=== PATIENT | male | born 1955 | race Caucasian/White ===

== ENCOUNTER 2017-04-24 11:19 | Emergency (ER) | payer OTHER ==
[~2017-04-24] VITALS: Ht 180.3 cm; Wt 88.0 kg
[2017-04-24] MEDS ORDERED: KETOROLAC 30MG/ML VIAL IV ONE (12:15)
[2017-04-24] MEDS: VANCOMYCIN 1 G PREMIX 200 ML IV SCH ×2 (13:00→13:12)
[2017-04-24] MEDS ORDERED: HYDRALAZINE 20MG/ML VIAL IV ONE (13:15)
[2017-04-24] MEDS ORDERED: LABETALOL 5MG/ML SYR 20 MG/4 ML SYRINGE IV ONE (15:00)
[2017-04-24 16:56] VITALS: BP 165/110
== END 2017-04-24 17:00 | disposition home or self-care (01) ==
LOC: ER 13:06
DX: L03.211 Cellulitis of face (principal); I11.9 Hypertensive heart disease without heart failure; E78.00 Pure hypercholesterolemia, unspecified
CPT/HCPCS: 96365; 96366; 96375; 99285; J0360; J1885; J3370; J3490; Z7610

== ENCOUNTER 2018-03-04 14:23 | Emergency (ER) | payer OTHER ==
[~2018-03-04] VITALS: Ht 180.3 cm; Wt 91.0 kg
[2018-03-04] MEDS ORDERED: CEFTRIAXONE SODIUM 250 MG/VIAL IM ONE (16:15)
[2018-03-04] MEDS ORDERED: CLONIDINE 0.1MG TABLET PO ONE (16:15)
[2018-03-04] MEDS ORDERED: LIDOCAINE HCL 1% 20ML VIAL (Pyxis) INJ INFIL ONE (16:15)
[2018-03-04] MEDS ORDERED: AZITHROMYCIN 500 MG TABLET PO ONE (16:15)
[2018-03-04 17:26] LABS: CLARITY URINE CLEAR (CLEAR); COLOR URINE YELLOW (YELLOW); KETONES URINE NEGATIVE (NEGATIVE); LEUKOCYTE ESTERASE URINE NEGATIVE (NEGATIVE); NITRITE URINE NEGATIVE (NEGATIVE); OCCULT BLOOD URINE NEGATIVE (NEGATIVE); PH URINE 5.5 (4.5-8.0); PROTEIN URINE 2+ (NEGATIVE); SPECIFIC GRAVITY URINE 1.021 (1.005-1.030); UROBILINOGEN URINE 0.2 E.U./dL (0.2-1.0)
[2018-03-04 17:30] VITALS: BP 181/105
== END 2018-03-04 18:08 | disposition home or self-care (01) ==
LOC: ER 14:23
DX: A64 Unspecified sexually transmitted disease (principal); I10 Essential (primary) hypertension; I25.10 Atherosclerotic heart disease of native coronary artery without angina pectoris; E78.00 Pure hypercholesterolemia, unspecified; F17.210 Nicotine dependence, cigarettes, uncomplicated; Z95.1 Presence of aortocoronary bypass graft; Z88.1 Allergy status to other antibiotic agents
CPT/HCPCS: 81003; 96372; 99283; J0696; J3490; Z7610

== ENCOUNTER 2019-09-17 12:00 | Emergency (ER) | payer MEDICAID, OTHER ==
[~2019-09-17] VITALS: Ht 180.3 cm; Wt 78.0 kg
[2019-09-17] MEDS ORDERED: KETOROLAC 60MG/2ML VIAL IM STA (15:04)
[2019-09-17 15:33] LABS: CHLORIDE 108 mEq/L (98-107)
[2019-09-17 15:39] LABS: BASOPHILS % 0.3 % (0.0-2.0); EOSINOPHILS % 1.7 % (0.0-5.0); HEMATOCRIT. 45.2 % (42.0-52.0); LYMPHOCYTES % 37.5 % (20.0-50.0); MEAN CORPUSCULAR HEMOGLOBIN 31.2 pg (28.0-32.0); MEAN CORPUSCULAR VOLUME 94.1 fL (80.0-94.0); MEAN PLATELET VOLUME 8.2 fl (7.4-10.4); MONOCYTES % 10.4 % (2.0-8.0); NEUTROPHILS % 50.1 % (40.0-76.0); PLATELET 186 x1000/uL (130-400); RED BLOOD CELL COUNT 4.81 mill/uL (4.7-6.1); RED CELL DISTRIBUTION WIDTH 14.5 % (11.6-14.6)
[2019-09-17 16:27] LABS: CLARITY URINE CLEAR (CLEAR); COLOR URINE YELLOW (YELLOW); KETONES URINE NEGATIVE (NEGATIVE); LEUKOCYTE ESTERASE URINE NEGATIVE (NEGATIVE); NITRITE URINE NEGATIVE (NEGATIVE); OCCULT BLOOD URINE NEGATIVE (NEGATIVE); PROTEIN URINE NEGATIVE (NEGATIVE); SPECIFIC GRAVITY URINE 1.013 (1.005-1.030); UROBILINOGEN URINE 0.2 E.U./dL (0.2-1.0)
[2019-09-17] MEDS ORDERED: NITROGLYCERIN 0.4MG TABLET SL SL ONE (16:45)
[2019-09-17 17:23] VITALS: BP 150/76
== END 2019-09-17 17:24 | disposition home or self-care (01) ==
LOC: ER 12:00
DX: R10.9 Unspecified abdominal pain (principal); R30.0 Dysuria; I11.9 Hypertensive heart disease without heart failure; E78.00 Pure hypercholesterolemia, unspecified; Z95.1 Presence of aortocoronary bypass graft; Z88.1 Allergy status to other antibiotic agents
CPT/HCPCS: 36415; 74176; 80053; 81003; 85025; 96372; 99284; J1885

== ENCOUNTER 2020-10-15 00:29 | Inpatient (IN) | payer MEDICAID, OTHER ==
[~2020-10-15] VITALS: Ht 175.3 cm; Wt 77.6 kg
[2020-10-15] MEDS ORDERED: NITROGLYCERIN 0.4MG TABLET SL SL PRN (00:45)
[2020-10-15] MEDS ORDERED: ASPIRIN 81MG TABLET PO ONE (00:45)
[2020-10-15 01:18] LABS: BASOPHILS % 0.4 % (0.0-2.0); EOSINOPHILS % 1.6 % (0.0-5.0); HEMATOCRIT. 40.7 % (42.0-52.0); HEMOGLOBIN. 13.4 g/dL (14.0-18.0); MEAN CORPUSCULAR HEMOGLOBIN 31.3 pg (28.0-32.0); MEAN CORPUSCULAR VOLUME 95.2 fL (80.0-94.0); MEAN PLATELET VOLUME 8.6 fl (7.4-10.4); MONOCYTES % 8.9 % (2.0-8.0); NEUTROPHILS % 57.1 % (40.0-76.0); PLATELET 225 x1000/uL (130-400); RED BLOOD CELL COUNT 4.28 mill/uL (4.7-6.1); RED CELL DISTRIBUTION WIDTH 15.3 % (11.6-14.6)
[2020-10-15 01:22] LABS: CHLORIDE 109 mEq/L (98-107)
[2020-10-15] MEDS ORDERED: HYDROCODONE/ACETAMINOPHEN 5/325MG TABLET PO ONE (01:30)
[2020-10-15] MEDS ORDERED: ACETAMINOPHEN 325MG TABLET PO PRN (09:30)
[2020-10-15] MEDS ORDERED: ONDANSETRON HCL 4MG/2ML INJ IV PRN (09:30)
[2020-10-15] MEDS: ASPIRIN 81MG TABLET PO SCH (09:44)
[2020-10-15] MEDS: ENOXAPARIN 40MG/0.4ML SYR SUBCUT SCH (09:44)
[2020-10-15] MEDS: CLOPIDOGREL 75MG TABLET PO SCH (09:44)
[2020-10-15] MEDS: MORPHINE SULFATE 2 MG/ML CPJ (NOT FOR IM USE) IV PRN ×2 (09:45→11:13)
[2020-10-15 14:43] LABS: CREATINE KINASE MB FRACTION 3.5 ng/mL (0.5-3.6)
[2020-10-15] MEDS: ATORVASTATIN CALCIUM 20MG TABLET PO SCH (21:08)
[2020-10-16] MEDS: MORPHINE SULFATE 2 MG/ML CPJ (NOT FOR IM USE) IV PRN ×2 (02:00→07:58)
[2020-10-16 04:06] LABS: CHLORIDE 108 mEq/L (98-107)
[2020-10-16 04:08] LABS: BASOPHILS % 0.5 % (0.0-2.0); EOSINOPHILS % 1.5 % (0.0-5.0); HEMATOCRIT. 36.4 % (42.0-52.0); HEMOGLOBIN. 12.2 g/dL (14.0-18.0); LYMPHOCYTES % 46.2 % (20.0-50.0); MEAN CORPUSCULAR HEMOGLOBIN 31.7 pg (28.0-32.0); MEAN CORPUSCULAR VOLUME 94.5 fL (80.0-94.0); MEAN PLATELET VOLUME 8.8 fl (7.4-10.4); MONOCYTES % 9.4 % (2.0-8.0); NEUTROPHILS % 42.4 % (40.0-76.0); PLATELET 205 x1000/uL (130-400); RED BLOOD CELL COUNT 3.85 mill/uL (4.7-6.1); RED CELL DISTRIBUTION WIDTH 14.9 % (11.6-14.6)
[2020-10-16] MEDS: ASPIRIN 81MG TABLET PO SCH (08:40)
[2020-10-16] MEDS: CLOPIDOGREL 75MG TABLET PO SCH (08:40)
[2020-10-16] MEDS: ENOXAPARIN 40MG/0.4ML SYR SUBCUT SCH (08:42)
[2020-10-16 11:00] VITALS: BP 155/97
[2020-10-16] MEDS: HYDROCODONE/ACETAMINOPHEN 5/325MG TABLET PO PRN ×2 (14:29→20:39)
[2020-10-16] MEDS: LOSARTAN POTASSIUM 100 MG TABLET PO SCH (14:29)
[2020-10-16 16:00] VITALS: BP 159/76
[2020-10-16 20:30] VITALS: BP 199/106
[2020-10-16] MEDS: ATORVASTATIN CALCIUM 20MG TABLET PO SCH (20:37)
[2020-10-16] MEDS: CARVEDILOL 12.5MG TABLET PO SCH (20:39)
[2020-10-17] VITALS (7 sets, daily range): BP systolic 130–170; BP diastolic 67–100
[2020-10-17] MEDS: HYDROCODONE/ACETAMINOPHEN 5/325MG TABLET PO PRN (02:24)
[2020-10-17] MEDS ORDERED: MORPHINE SULFATE 2 MG/ML CPJ (NOT FOR IM USE) IV PRN (02:45)
[2020-10-17] MEDS: NITROGLYCERIN 0.4MG TABLET SL SL PRN ×2 (02:56→06:35)
[2020-10-17] MEDS: ENOXAPARIN 40MG/0.4ML SYR SUBCUT SCH (08:06)
[2020-10-17] MEDS: CLOPIDOGREL 75MG TABLET PO SCH (08:06)
[2020-10-17] MEDS: CARVEDILOL 12.5MG TABLET PO SCH (08:07)
[2020-10-17] MEDS: LOSARTAN POTASSIUM 100 MG TABLET PO SCH (08:07)
[2020-10-17] MEDS ORDERED: AMLODIPINE 10MG TABLET PO SCH (09:00)
[2020-10-17] MEDS ORDERED: ASPIRIN 81MG TABLET PO SCH (09:00)
[2020-10-17] MEDS ORDERED: ISOSORBIDE MONONITRATE 30MG TABLET SR 24HR PO SCH (09:00)
[2020-10-17] MEDS ORDERED: TAMSULOSIN HCL 0.4MG SR CAPSULE PO SCH ×2 (13:30→15:00)
[2020-10-17] MEDS ORDERED: HYDROCODONE/ACETAMINOPHEN 5/325MG TABLET PO PRN (14:15)
[2020-10-17 15:13] LABS: CLARITY URINE CLEAR (CLEAR); COLOR URINE YELLOW (YELLOW); KETONES URINE NEGATIVE (NEGATIVE); LEUKOCYTE ESTERASE URINE NEGATIVE (NEGATIVE); NITRITE URINE NEGATIVE (NEGATIVE); OCCULT BLOOD URINE NEGATIVE (NEGATIVE); PH URINE 6.5 (4.5-8.0); PROTEIN URINE NEGATIVE (NEGATIVE); SPECIFIC GRAVITY URINE 1.011 (1.005-1.030); UROBILINOGEN URINE 0.2 E.U./dL (0.2-1.0)
[2020-10-17] MEDS ORDERED: TAMS-11 PO (17:14)
[2020-10-17] MEDS ORDERED: AMLO10TA80 PO (17:14)
[2020-10-17] MEDS ORDERED: CLOP75TA15 PO (17:14)
[2020-10-17] MEDS ORDERED: COR12 PO (17:14)
[2020-10-17] MEDS ORDERED: ISOS30TA91 PO (17:14)
[2020-10-17] MEDS ORDERED: LOSA100T3 PO (17:14)
[2020-10-17] MEDS ORDERED: ATOR20TA PO (17:14)
[2020-10-17] MEDS ORDERED: ASPI-1160 PO (17:14)
== END 2020-10-17 18:06 | disposition home or self-care (01) | DRG 206 ==
LOC: ER 00:29 → 8WST 18:50 → ENRESERV 10-16 09:42
PROVIDERS: ADMIT Internal Medicine; ATTEND Internal Medicine
DX: T82.847A Pain due to cardiac prosthetic devices, implants and grafts, initial encounter (principal); M79.606 Pain in leg, unspecified; E44.1 Mild protein-calorie malnutrition; E78.5 Hyperlipidemia, unspecified; E87.8 Other disorders of electrolyte and fluid balance, not elsewhere classified; I25.118 Atherosclerotic heart disease of native coronary artery with other forms of angina pectoris; E78.00 Pure hypercholesterolemia, unspecified; M19.90 Unspecified osteoarthritis, unspecified site; Z95.1 Presence of aortocoronary bypass graft; Z95.5 Presence of coronary angioplasty implant and graft; Z68.25 Body mass index [BMI] 25.0-25.9, adult; Z88.1 Allergy status to other antibiotic agents; N17.0 Acute kidney failure with tubular necrosis; I10 Essential (primary) hypertension
CPT/HCPCS: 36415; 71045; 74178; 80048; 80053; 80061; 81003; 82550; 82553; 83880; 84443; 84484; 85025; 93005; 93306; 96374; 99291; J1650; J2270

== ENCOUNTER 2020-11-03 17:23 | Inpatient (IN) | payer MEDICAID ==
[~2020-11-03] VITALS: Ht 180.3 cm; Wt 76.7 kg
[~2020-11-03 17:23] MED LIST: AMLO10TA80 PO; ASPI-1160 PO; ATOR20TA PO; CLOP75TA15 PO; COR12 PO; ISOS30TA91 PO; LOSA100T3 PO; TAMS-11 PO
[2020-11-03] MEDS ORDERED: ASPIRIN 81MG TABLET PO ONE ×2 (19:15→22:00)
[2020-11-03] MEDS: NITROGLYCERIN 0.4MG TABLET SL SL PRN ×2 (19:39→19:44)
[2020-11-03 19:53] LABS: BASOPHILS % 0.4 % (0.0-2.0); EOSINOPHILS % 1.4 % (0.0-5.0); HEMATOCRIT. 37.7 % (42.0-52.0); HEMOGLOBIN. 12.8 g/dL (14.0-18.0); LYMPHOCYTES % 25.5 % (20.0-50.0); MEAN CORPUSCULAR HEMOGLOBIN 32.3 pg (28.0-32.0); MEAN PLATELET VOLUME 8.7 fl (7.4-10.4); MONOCYTES % 9.9 % (2.0-8.0); NEUTROPHILS % 62.8 % (40.0-76.0); PLATELET 193 x1000/uL (130-400); RED BLOOD CELL COUNT 3.97 mill/uL (4.7-6.1); RED CELL DISTRIBUTION WIDTH 15.8 % (11.6-14.6)
[2020-11-03] MEDS ORDERED: HYDROCODONE/ACETAMINOPHEN 5/325MG TABLET PO PRN (22:00)
[2020-11-04] VITALS (7 sets, daily range): BP systolic 133–170; BP diastolic 68–98
[2020-11-04] MEDS ORDERED: MORPHINE SULFATE 2 MG/ML CPJ (NOT FOR IM USE) IV PRN (03:15)
[2020-11-04] MEDS: HYDROCODONE/ACETAMINOPHEN 10/325MG TABLET PO PRN ×2 (04:14→16:49)
[2020-11-04 07:24] LABS: CHLORIDE 109 mEq/L (98-107)
[2020-11-04 07:29] LABS: BASOPHILS % 0.5 % (0.0-2.0); EOSINOPHILS % 1.8 % (0.0-5.0); HEMATOCRIT. 35.8 % (42.0-52.0); LYMPHOCYTES % 39.4 % (20.0-50.0); MEAN CORPUSCULAR HEMOGLOBIN 32.2 pg (28.0-32.0); MEAN CORPUSCULAR VOLUME 96.4 fL (80.0-94.0); MEAN PLATELET VOLUME 8.2 fl (7.4-10.4); MONOCYTES % 9.1 % (2.0-8.0); NEUTROPHILS % 49.2 % (40.0-76.0); PLATELET 177 x1000/uL (130-400); RED BLOOD CELL COUNT 3.72 mill/uL (4.7-6.1); RED CELL DISTRIBUTION WIDTH 15.8 % (11.6-14.6)
[2020-11-04] MEDS: ASPIRIN 81MG TABLET PO SCH (08:32)
[2020-11-04] MEDS: LOSARTAN POTASSIUM 100 MG TABLET PO SCH (08:32)
[2020-11-04] MEDS: AMLODIPINE 10MG TABLET PO SCH (08:33)
[2020-11-04] MEDS ORDERED: METOPROLOL TARTRATE 50MG TABLET PO SCH (09:00)
[2020-11-04] MEDS: NITROGLYCERIN 0.4MG TABLET SL SL PRN (11:09)
[2020-11-04] MEDS: CLOPIDOGREL 75MG TABLET PO SCH (13:46)
[2020-11-04 17:49] LABS: *BARBITURATES SCREEN URINE NEGATIVE (NEGATIVE); *BENZODIAZEPINES SCREEN URINE NEGATIVE (NEGATIVE); *COCAINE SCREEN URINE NEGATIVE (NEGATIVE); METHADONE URINE SCREEN NEGATIVE (NEGATIVE)
[2020-11-04 17:50] LABS: *AMPHETAMINES SCREEN URINE NEGATIVE (NEGATIVE); CANNABINOID URINE SCREEN PRESUMTIVE POSITIVE (NEGATIVE); OPIATES URINE SCREEN PRESUMTIVE POSITIVE (NEGATIVE); PHENCYCLIDINE URINE SCREEN NEGATIVE (NEGATIVE)
[2020-11-05] VITALS: BP 138/80
[2020-11-05] MEDS: NITROGLYCERIN 0.4MG TABLET SL SL PRN (02:08)
[2020-11-05] MEDS: HYDROCODONE/ACETAMINOPHEN 10/325MG TABLET PO PRN ×3 (02:13→23:27)
[2020-11-05 04:00] VITALS: BP 140/77
[2020-11-05 08:00] VITALS: BP 153/68
[2020-11-05] MEDS: TAMSULOSIN HCL 0.4MG SR CAPSULE PO SCH (09:31)
[2020-11-05] MEDS: ASPIRIN 81MG TABLET PO SCH (09:31)
[2020-11-05] MEDS: AMLODIPINE 10MG TABLET PO SCH (09:31)
[2020-11-05] MEDS: CLOPIDOGREL 75MG TABLET PO SCH (09:31)
[2020-11-05] MEDS: LOSARTAN POTASSIUM 100 MG TABLET PO SCH (09:31)
[2020-11-05 12:00] VITALS: BP_SYST 136; BP_SYST 155; BP_DIAS 63; BP_DIAS 82
[2020-11-05 16:00] VITALS: BP 148/80
[2020-11-05 20:00] VITALS: BP 148/89
[2020-11-05] MEDS: METOPROLOL TARTRATE 50MG TABLET PO SCH (20:48)
[2020-11-05] MEDS: AMLODIPINE 2.5MG TABLET PO SCH (20:48)
[2020-11-06] VITALS: BP 129/80
[2020-11-06 04:00] VITALS: BP 135/79
[2020-11-06] MEDS: CLOPIDOGREL 75MG TABLET PO SCH (07:51)
[2020-11-06] MEDS: ASPIRIN 81MG TABLET PO SCH (07:51)
[2020-11-06] MEDS: LOSARTAN POTASSIUM 100 MG TABLET PO SCH (07:52)
[2020-11-06] MEDS: TAMSULOSIN HCL 0.4MG SR CAPSULE PO SCH (07:52)
[2020-11-06] MEDS: HYDROCODONE/ACETAMINOPHEN 10/325MG TABLET PO PRN ×2 (07:53→12:25)
[2020-11-06] MEDS: METOPROLOL TARTRATE 50MG TABLET PO SCH (07:53)
[2020-11-06] MEDS: AMLODIPINE 2.5MG TABLET PO SCH (07:54)
[2020-11-06 08:00] VITALS: BP 123/81
[2020-11-06 12:31] VITALS: BP 134/83
== END 2020-11-06 13:00 | disposition home or self-care (01) | DRG 198 ==
LOC: ER 17:23 → MICUSO 21:50 → 8WST 23:24
PROVIDERS: ADMIT Internal Medicine; ATTEND Internal Medicine
DX: R07.89 Other chest pain (principal); I25.118 Atherosclerotic heart disease of native coronary artery with other forms of angina pectoris; N17.0 Acute kidney failure with tubular necrosis; E87.8 Other disorders of electrolyte and fluid balance, not elsewhere classified; D64.9 Anemia, unspecified; E78.5 Hyperlipidemia, unspecified; I10 Essential (primary) hypertension; N40.0 Benign prostatic hyperplasia without lower urinary tract symptoms; E78.00 Pure hypercholesterolemia, unspecified; Z76.5 Malingerer [conscious simulation]; Z95.1 Presence of aortocoronary bypass graft; Z95.5 Presence of coronary angioplasty implant and graft; Z88.1 Allergy status to other antibiotic agents; Z79.899 Other long term (current) drug therapy; Z79.82 Long term (current) use of aspirin
CPT/HCPCS: 36415; 71045; 80048; 80305; 84484; 85025; 93005; 99285; J2270

== ENCOUNTER 2022-07-20 09:48 | Emergency (ER) | payer MEDICARE, MEDICAID ==
[~2022-07-20] VITALS: Ht 180.3 cm; Wt 80.0 kg
[2022-07-20 10:15] VITALS: BP 159/105
[2022-07-20 13:13] LABS: CLARITY URINE CLEAR (CLEAR); COLOR URINE YELLOW (YELLOW); KETONES URINE NEGATIVE (NEGATIVE); LEUKOCYTE ESTERASE URINE NEGATIVE (NEGATIVE); NITRITE URINE NEGATIVE (NEGATIVE); OCCULT BLOOD URINE NEGATIVE (NEGATIVE); PH URINE 5.5 (4.5-8.0); PROTEIN URINE 2+ (NEGATIVE); SPECIFIC GRAVITY URINE 1.024 (1.005-1.030)
[2022-07-20] MEDS ORDERED: COR12 PO ×3 (14:05→14:48)
[2022-07-20] MEDS ORDERED: LOSA100T3 PO ×3 (14:05→14:48)
[2022-07-20] MEDS ORDERED: TAMS-11 PO ×3 (14:05→14:48)
[2022-07-20] MEDS ORDERED: AMLO10TA80 PO ×3 (14:05→14:48)
[2022-07-20] MEDS ORDERED: ASPI-1160 PO ×3 (14:05→14:48)
== END 2022-07-20 19:50 | disposition home or self-care (01) ==
LOC: ER 09:48
DX: I10 Essential (primary) hypertension (principal); N40.0 Benign prostatic hyperplasia without lower urinary tract symptoms; I25.2 Old myocardial infarction; M19.90 Unspecified osteoarthritis, unspecified site; Z88.1 Allergy status to other antibiotic agents; Z95.1 Presence of aortocoronary bypass graft; Z86.73 Personal history of transient ischemic attack (TIA), and cerebral infarction without residual deficits; Z79.82 Long term (current) use of aspirin
CPT/HCPCS: 81003; 99283

== ENCOUNTER 2022-10-08 09:19 | Emergency (ER) | payer MEDICARE, MEDICAID ==
[~2022-10-08] VITALS: Ht 180.3 cm; Wt 81.9 kg
[2022-10-08 09:30] VITALS: BP 142/95
[2022-10-08 11:27] LABS: CLARITY URINE CLEAR (CLEAR); COLOR URINE YELLOW (YELLOW); KETONES URINE TRACE (NEGATIVE); LEUKOCYTE ESTERASE URINE NEGATIVE (NEGATIVE); NITRITE URINE NEGATIVE (NEGATIVE); OCCULT BLOOD URINE NEGATIVE (NEGATIVE); PH URINE 5.5 (4.5-8.0); PROTEIN URINE 2+ (NEGATIVE); SPECIFIC GRAVITY URINE 1.026 (1.005-1.030)
[2022-10-08 11:49] LABS: BASOPHILS % 0.4 % (0.0-2.0); EOSINOPHILS % 1.4 % (0.0-5.0); HEMATOCRIT. 48.7 % (42.0-52.0); HEMOGLOBIN. 16.3 g/dL (14.0-18.0); LYMPHOCYTES % 32.6 % (20.0-50.0); MEAN CORPUSCULAR HEMOGLOBIN 31.7 pg (28.0-32.0); MEAN CORPUSCULAR VOLUME 94.4 fL (80.0-94.0); MEAN PLATELET VOLUME 8.7 fl (7.4-10.4); MONOCYTES % 7.3 % (2.0-8.0); NEUTROPHILS % 58.3 % (40.0-76.0); PLATELET 208 x1000/uL (130-400); RED BLOOD CELL COUNT 5.16 mill/uL (4.7-6.1); RED CELL DISTRIBUTION WIDTH 14.8 % (11.6-14.6)
[2022-10-08 12:00] LABS: CHLORIDE 106 mEq/L (98-107)
[2022-10-08] MEDS ORDERED: CEPH500T MT (12:18)
[2022-10-08] MEDS ORDERED: TAMS-11 MT (12:18)
== END 2022-10-08 12:30 | disposition home or self-care (01) ==
LOC: ER 09:19
DX: N39.0 Urinary tract infection, site not specified (principal); N40.0 Benign prostatic hyperplasia without lower urinary tract symptoms; I25.2 Old myocardial infarction; I10 Essential (primary) hypertension; Z88.1 Allergy status to other antibiotic agents; Z79.899 Other long term (current) drug therapy; Z86.73 Personal history of transient ischemic attack (TIA), and cerebral infarction without residual deficits; Z98.890 Other specified postprocedural states
CPT/HCPCS: 36415; 74176; 80053; 81003; 85025; 99284

== ENCOUNTER 2022-12-16 09:09 | Emergency (ER) | payer OTHER, MEDICAID ==
[~2022-12-16] VITALS: Ht 170.2 cm; Wt 75.0 kg
[~2022-12-16 09:09] MED LIST changes: +CEPH500T MT; -LOSA100T3 PO; +LOSA100T4 PO; +TAMS-11 MT
[2022-12-16 09:12] VITALS: BP 198/127
[2022-12-16] MEDS ORDERED: NITR0.4T49 SL (09:58)
[2022-12-16] MEDS ORDERED: IBUP-2028 MT (09:58)
== END 2022-12-16 10:11 | disposition home or self-care (01) ==
LOC: ER 09:09
DX: Z76.0 Encounter for issue of repeat prescription (principal)
CPT/HCPCS: 99281; 99283

== ENCOUNTER 2023-03-31 16:23 | Emergency (ER) | payer OTHER, MEDICAID ==
[~2023-03-31] VITALS: Ht 182.9 cm; Wt 79.0 kg
[~2023-03-31 16:23] MED LIST changes: +IBUP-2028 MT; +NITR0.4T49 SL
[2023-03-31 16:40] VITALS: O2SAT 98
[2023-03-31 18:41] VITALS: BP 165/114
[2023-03-31] MEDS ORDERED: KETOROLAC 60MG/2ML VIAL IM STA (18:41)
[2023-03-31 18:52] LABS: CLARITY URINE CLEAR (CLEAR); COLOR URINE DARK YELLOW (YELLOW); KETONES URINE TRACE (NEGATIVE); LEUKOCYTE ESTERASE URINE NEGATIVE (NEGATIVE); NITRITE URINE NEGATIVE (NEGATIVE); OCCULT BLOOD URINE TRACE (NEGATIVE); PH URINE 5.5 (4.5-8.0); PROTEIN URINE 3+ (NEGATIVE); SPECIFIC GRAVITY URINE 1.027 (1.005-1.030)
[2023-03-31 20:41] LABS: BASOPHILS % 0.3 % (0.0-2.0); EOSINOPHILS % 0.8 % (0.0-5.0); HEMATOCRIT. 48.1 % (42.0-52.0); HEMOGLOBIN. 16.7 g/dL (14.0-18.0); LYMPHOCYTES % 27.4 % (20.0-50.0); MEAN CORPUSCULAR HEMOGLOBIN 31.9 pg (28.0-32.0); MEAN CORPUSCULAR VOLUME 91.9 fL (80.0-94.0); MEAN PLATELET VOLUME 8.9 fl (7.4-10.4); NEUTROPHILS % 65.5 % (40.0-76.0); PLATELET 200 x1000/uL (130-400); RED BLOOD CELL COUNT 5.23 mill/uL (4.7-6.1); RED CELL DISTRIBUTION WIDTH 14.5 % (11.6-14.6)
[2023-03-31 20:44] LABS: CHLORIDE 108 mEq/L (98-107)
[2023-03-31] MEDS ORDERED: CIPR500T5 MT (21:05)
[2023-03-31 21:16] VITALS: PULSE 84; RESP 20; TEMP 98.6
[2023-03-31] MEDS ORDERED: CEPH500C2 MT (21:24)
== END 2023-03-31 21:19 | disposition home or self-care (01) ==
LOC: ER 16:23
DX: R35.0 Frequency of micturition (principal); N39.0 Urinary tract infection, site not specified; I10 Essential (primary) hypertension; I25.2 Old myocardial infarction; Z86.73 Personal history of transient ischemic attack (TIA), and cerebral infarction without residual deficits; Z79.899 Other long term (current) drug therapy
CPT/HCPCS: 36415; 74176; 80053; 81003; 85025; 87077; 87186; 96372; 99285

== ENCOUNTER 2023-10-08 09:03 | Emergency (ER) | payer BC, MEDICAID ==
[~2023-10-08] VITALS: Ht 180.3 cm; Wt 84.0 kg
[~2023-10-08 09:03] MED LIST changes: +CEPH500C2 MT; +CIPR500T5 MT; +LOSA-415 PO; -LOSA100T4 PO
[2023-10-08 09:08] VITALS: O2SAT 99
[2023-10-08] MEDS ORDERED: NITR0.4T49 SL (09:18)
[2023-10-08 09:45] VITALS: BP 136/84; PULSE 100; RESP 16; TEMP 98
== END 2023-10-08 09:46 | disposition home or self-care (01) ==
LOC: ER 09:03
DX: I25.2 Old myocardial infarction (principal); I10 Essential (primary) hypertension; Z76.0 Encounter for issue of repeat prescription; Z88.1 Allergy status to other antibiotic agents; Z79.899 Other long term (current) drug therapy; Z86.73 Personal history of transient ischemic attack (TIA), and cerebral infarction without residual deficits
CPT/HCPCS: 99281

== ENCOUNTER 2023-11-10 09:33 | Inpatient (IN) | payer BC, MEDICAID ==
[~2023-11-10] VITALS: Ht 180.3 cm; Wt 78.5 kg
[2023-11-10 10:34] LABS: BASOPHILS % 0.2 % (0.0-2.0); EOSINOPHILS % 1.6 % (0.0-5.0); HEMOGLOBIN. 14.8 g/dL (14.0-18.0); LYMPHOCYTES % 33.7 % (20.0-50.0); MEAN CORPUSCULAR HEMOGLOBIN 31.5 pg (28.0-32.0); MEAN CORPUSCULAR HGB CONC 33.7 g/dL (31.0-37.0); MEAN CORPUSCULAR VOLUME 93.5 fL (80.0-94.0); MEAN PLATELET VOLUME 8.7 fl (7.4-10.4); MONOCYTES % 7.2 % (2.0-8.0); NEUTROPHILS % 57.3 % (40.0-76.0); PLATELET 197 x1000/uL (130-400); RED BLOOD CELL COUNT 4.71 mill/uL (4.7-6.1); RED CELL DISTRIBUTION WIDTH 14.8 % (11.6-14.6); WHITE BLOOD COUNT 5.2 x1000/uL (4.5-11.0)
[2023-11-10 10:54] LABS: CARBON DIOXIDE 26 mEq/L (21-32); CHLORIDE 109 mEq/L (98-107); POTASSIUM 4.4 mEq/L (3.5-5.1); SODIUM 141 mEq/L (136-145)
[2023-11-10 10:55] LABS: CLARITY URINE CLEAR (CLEAR); COLOR URINE YELLOW (YELLOW); GLUCOSE URINE NEGATIVE (NEGATIVE); KETONES URINE NEGATIVE (NEGATIVE); LEUKOCYTE ESTERASE URINE NEGATIVE (NEGATIVE); NITRITE URINE NEGATIVE (NEGATIVE); OCCULT BLOOD URINE NEGATIVE (NEGATIVE); PROTEIN URINE 1+ (NEGATIVE); SPECIFIC GRAVITY URINE 1.021 (1.005-1.030); UROBILINOGEN URINE 0.2 E.U./dL (0.2-1.0)
[2023-11-10 10:55] LABS: ALANINE AMINOTRANSFERASE 14 IU/L (10-49); ALBUMIN 4.5 g/dL (3.2-4.8); ASPARTATE AMINOTRANSFERASE 20 IU/L (<34); BILIRUBIN TOTAL 0.4 mg/dL (0.1-1.0); CREATININE 1.3 mg/dL (0.6-1.3); GLUCOSE 91 mg/dL (70-105); PROTEIN TOTAL 7.9 g/dL (6.0-8.3); UREA NITROGEN BLOOD 23 mg/dL (9-23)
[2023-11-10 11:07] LABS: BACTERIA URINE NONE SEEN; RBC URINE 0-2 /hpf (0-2); SQUAMOUS EPITHELIAL CELL URINE RARE /lpf (RARE/1+); WBC URINE 0-2 /hpf (0-2); YEAST URINE NONE SEEN
[2023-11-10] MEDS: ASPIRIN 81MG TABLET PO ONE (11:58)
[2023-11-10] MEDS: NITROGLYCERIN 0.4MG TABLET SL SL PRN (11:58)
[2023-11-10 12:21] LABS: BASOPHILS % 0.4 % (0.0-2.0); EOSINOPHILS % 1.5 % (0.0-5.0); HEMATOCRIT. 41.4 % (42.0-52.0); HEMOGLOBIN. 13.8 g/dL (14.0-18.0); LYMPHOCYTES % 33.2 % (20.0-50.0); MEAN CORPUSCULAR HEMOGLOBIN 31.3 pg (28.0-32.0); MEAN CORPUSCULAR HGB CONC 33.4 g/dL (31.0-37.0); MEAN CORPUSCULAR VOLUME 93.6 fL (80.0-94.0); MEAN PLATELET VOLUME 8.5 fl (7.4-10.4); MONOCYTES % 7.9 % (2.0-8.0); PLATELET 189 x1000/uL (130-400); RED BLOOD CELL COUNT 4.42 mill/uL (4.7-6.1); RED CELL DISTRIBUTION WIDTH 14.2 % (11.6-14.6)
[2023-11-10 12:52] LABS: ALANINE AMINOTRANSFERASE 12 IU/L (10-49); ALBUMIN 4.2 g/dL (3.2-4.8); ASPARTATE AMINOTRANSFERASE 20 IU/L (<34); BILIRUBIN TOTAL 0.4 mg/dL (0.1-1.0); CALCIUM 8.9 mg/dL (8.7-10.4); CARBON DIOXIDE 27 mEq/L (21-32); CHLORIDE 109 mEq/L (98-107); CREATININE 1.2 mg/dL (0.6-1.3); GLUCOSE 89 mg/dL (70-105); POTASSIUM 4.6 mEq/L (3.5-5.1); PROTEIN TOTAL 7.3 g/dL (6.0-8.3); SODIUM 141 mEq/L (136-145); UREA NITROGEN BLOOD 22 mg/dL (9-23)
[2023-11-10 13:01] LABS: TROPONIN I HIGH SENSITIVITY 60 ng/L (3.0-53)
[2023-11-10 14:44] LABS: TROPONIN I HIGH SENSITIVITY 57 ng/L (3.0-53)
[2023-11-10] MEDS: LOSARTAN 50 MG TABLET PO SCH (16:54)
[2023-11-10] MEDS: CLOPIDOGREL 75MG TABLET PO SCH (16:55)
[2023-11-10] MEDS: AMLODIPINE 5MG TABLET PO SCH (16:55)
[2023-11-10] MEDS: ISOSORBIDE MONONITRATE 30MG TABLET SR 24HR PO SCH (17:49)
[2023-11-10 23:45] VITALS: BP 169/108; PULSE 72; RESP 18; TEMP 97.6
[2023-11-10] MEDS ORDERED: ISOS60TA76 PO (23:59)
[2023-11-11 00:14] VITALS: BP 169/108; PULSE 72; RESP 18; TEMP 97.6
[2023-11-11] MEDS ORDERED: NALOXONE HCL 0.4MG/ML VIAL IV PRN (01:30)
[2023-11-11] MEDS: CLONIDINE 0.2MG TABLET PO PRN (01:43)
[2023-11-11] MEDS: MORPHINE SULFATE 2 MG/ML CPJ (NOT FOR IM USE) IV PRN (01:44)
[2023-11-11 04:00] VITALS: BP_SYST 139; BP_SYST 149; BP_DIAS 61; BP_DIAS 81; PULSE 75; PULSE 88; RESP 15; RESP 17; TEMP 97.6; TEMP 97.7
[2023-11-11 06:27] LABS: BASOPHILS % 0.4 % (0.0-2.0); EOSINOPHILS % 1.8 % (0.0-5.0); HEMATOCRIT. 43.8 % (42.0-52.0); HEMOGLOBIN. 14.8 g/dL (14.0-18.0); MEAN CORPUSCULAR HGB CONC 33.7 g/dL (31.0-37.0); MEAN PLATELET VOLUME 8.9 fl (7.4-10.4); MONOCYTES % 7.7 % (2.0-8.0); NEUTROPHILS % 50.1 % (40.0-76.0); PLATELET 185 x1000/uL (130-400); RED BLOOD CELL COUNT 4.76 mill/uL (4.7-6.1); RED CELL DISTRIBUTION WIDTH 14.6 % (11.6-14.6); WHITE BLOOD COUNT 5.1 x1000/uL (4.5-11.0)
[2023-11-11 06:29] LABS: CALCIUM 8.4 mg/dL (8.7-10.4); CARBON DIOXIDE 26 mEq/L (21-32); CHLORIDE 107 mEq/L (98-107); CREATININE 1.2 mg/dL (0.6-1.3); GLUCOSE 110 mg/dL (70-105); POTASSIUM 4.6 mEq/L (3.5-5.1); SODIUM 138 mEq/L (136-145); UREA NITROGEN BLOOD 20 mg/dL (9-23)
[2023-11-11 07:35] LABS: TROPONIN I HIGH SENSITIVITY 61 ng/L (3.0-53)
[2023-11-11 08:00] VITALS: BP 143/94; PULSE 63; RESP 20; TEMP 97.6
[2023-11-11] MEDS: ASPIRIN 81MG TABLET PO SCH (09:37)
[2023-11-11 12:00] VITALS: BP 146/83; PULSE 60; RESP 20; TEMP 97.3
[2023-11-11] MEDS ORDERED: SPIRONOLACTONE 12.5MG TABLET PO SCH (13:00)
[2023-11-11 16:47] VITALS: BP 146/92; PULSE 60; TEMP 97.7; O2SAT 96
[2023-11-11] MEDS ORDERED: ATOR20TA PO (17:47)
[2023-11-11] MEDS ORDERED: NITR0.4T49 SL (17:47)
[2023-11-11] MEDS ORDERED: LOSA50TA41 PO (17:47)
[2023-11-11] MEDS ORDERED: ISOS30TA91 PO (17:47)
[2023-11-11] MEDS ORDERED: CLOP-31 PO (17:47)
[2023-11-11] MEDS ORDERED: ASPI-1160 PO (17:47)
[2023-11-11] MEDS ORDERED: COR12 PO (17:47)
[2023-11-11] MEDS ORDERED: AMLO5TAB88 PO (17:47)
[2023-11-11] MEDS ORDERED: SPIR25TA PO (17:47)
[2023-11-11] MEDS ORDERED: ATORVASTATIN CALCIUM 20MG TABLET PO SCH (21:00)
[2023-11-11] MEDS ORDERED: CARVEDILOL 12.5MG TABLET PO SCH (21:00)
== END 2023-11-11 17:57 | disposition home or self-care (01) | DRG 282 ==
LOC: ER 09:33 → 8WST 14:45 → EDBEDREQTM 14:48 → EDBEDREQ 14:48
PROVIDERS: ADMIT Internal Medicine; ATTEND Internal Medicine
DX: I16.0 Hypertensive urgency (principal); I21.A1 Myocardial infarction type 2; E78.5 Hyperlipidemia, unspecified; I10 Essential (primary) hypertension; I25.10 Atherosclerotic heart disease of native coronary artery without angina pectoris; Z79.899 Other long term (current) drug therapy; Z86.73 Personal history of transient ischemic attack (TIA), and cerebral infarction without residual deficits; Z91.148 Patient's other noncompliance with medication regimen for other reason; Z95.1 Presence of aortocoronary bypass graft; Z98.61 Coronary angioplasty status
CPT/HCPCS: 36415; 71045; 80048; 80053; 81003; 84484; 85025; 93005; 93306; 99285; J2270

== ENCOUNTER 2024-01-14 15:37 | Emergency (ER) | payer BC, MEDICAID ==
[~2024-01-14] VITALS: Ht 180.3 cm; Wt 78.5 kg
[~2024-01-14 15:37] MED LIST changes: -AMLO10TA80 PO; +AMLO5TAB88 PO; -CEPH500C2 MT; -CEPH500T MT; -CIPR500T5 MT; +CLOP-31 PO; -CLOP75TA15 PO; -IBUP-2028 MT; -LOSA-415 PO; +LOSA50TA41 PO; +SPIR25TA PO; -TAMS-11 MT; -TAMS-11 PO
[2024-01-14 15:56] VITALS: O2SAT 99
[2024-01-14] MEDS ORDERED: NITR0.4T49 SL (16:14)
[2024-01-14 16:52] VITALS: BP 158/98; PULSE 77; RESP 18; TEMP 98.6
== END 2024-01-14 16:55 | disposition home or self-care (01) ==
LOC: ER 15:37
DX: Z76.0 Encounter for issue of repeat prescription (principal); I11.9 Hypertensive heart disease without heart failure; I25.2 Old myocardial infarction; F19.90 Other psychoactive substance use, unspecified, uncomplicated; Z98.890 Other specified postprocedural states; Z86.73 Personal history of transient ischemic attack (TIA), and cerebral infarction without residual deficits; Z88.8 Allergy status to other drugs, medicaments and biological substances
CPT/HCPCS: 99283

== ENCOUNTER 2024-04-22 08:45 | Emergency (ER) | payer BC, MEDICAID ==
[~2024-04-22] VITALS: Ht 172.7 cm; Wt 79.5 kg
[2024-04-22 08:48] VITALS: O2SAT 100
[2024-04-22 08:49] VITALS: BP 180/124; PULSE 77; TEMP 98.8; O2SAT 100
[2024-04-22 08:54] VITALS: RESP 18
[2024-04-22] MEDS ORDERED: NITR0.4T49 SL (08:55)
[2024-04-22 09:00] VITALS: TEMP 37.11408
== END 2024-04-22 09:06 | disposition home or self-care (01) ==
LOC: ER 09:01
DX: Z76.0 Encounter for issue of repeat prescription (principal); I11.9 Hypertensive heart disease without heart failure; I25.2 Old myocardial infarction; F19.90 Other psychoactive substance use, unspecified, uncomplicated; Z98.890 Other specified postprocedural states; Z79.899 Other long term (current) drug therapy; Z88.8 Allergy status to other drugs, medicaments and biological substances
CPT/HCPCS: 99281

== ENCOUNTER 2024-04-26 08:53 | Emergency (ER) | payer BC, MEDICAID ==
[~2024-04-26] VITALS: Ht 177.8 cm; Wt 81.0 kg
[2024-04-26 08:59] VITALS: O2SAT 98
[2024-04-26 09:35] VITALS: BP 147/71; PULSE 68; RESP 18; TEMP 36.72516; O2SAT 98
== END 2024-04-26 09:36 | disposition home or self-care (01) ==
LOC: ER 08:53
DX: Z76.0 Encounter for issue of repeat prescription (principal); I11.9 Hypertensive heart disease without heart failure; I25.2 Old myocardial infarction; F19.90 Other psychoactive substance use, unspecified, uncomplicated; Z86.73 Personal history of transient ischemic attack (TIA), and cerebral infarction without residual deficits; Z98.890 Other specified postprocedural states; Z79.899 Other long term (current) drug therapy; Z88.8 Allergy status to other drugs, medicaments and biological substances
CPT/HCPCS: 99281

== ENCOUNTER 2024-05-14 11:39 | Emergency (ER) | payer BC, MEDICAID ==
[~2024-05-14] VITALS: Ht 177.8 cm; Wt 81.0 kg
[2024-05-14 11:42] VITALS: O2SAT 95
[2024-05-14 12:08] VITALS: BP 154/83; PULSE 83; RESP 18; TEMP 37.00296; O2SAT 97
[2024-05-14 12:15] LABS: BASOPHILS % 0.4 % (0.0-2.0); EOSINOPHILS % 2.4 % (0.0-5.0); LYMPHOCYTES % 30.3 % (20.0-50.0); MEAN CORPUSCULAR HEMOGLOBIN 31.9 pg (28.0-32.0); MEAN CORPUSCULAR HGB CONC 34.1 g/dL (31.0-37.0); MEAN CORPUSCULAR VOLUME 93.4 fL (80.0-94.0); MEAN PLATELET VOLUME 8.2 fl (7.4-10.4); NEUTROPHILS % 60.9 % (40.0-76.0); PLATELET 203 x1000/uL (130-400); RED BLOOD CELL COUNT 4.39 mill/uL (4.7-6.1); RED CELL DISTRIBUTION WIDTH 14.6 % (11.6-14.6); WHITE BLOOD COUNT 5.6 x1000/uL (4.5-11.0)
[2024-05-14] MEDS ORDERED: NITROGLYCERIN 0.4MG TABLET SL SL PRN (12:15)
[2024-05-14] MEDS: ASPIRIN 81MG TABLET PO ONE (12:20)
[2024-05-14] MEDS: MORPHINE SULFATE 4 MG/ML INJ (FOR IV/IM USE) IV STA (12:21)
[2024-05-14 12:27] LABS: PROTHROMBIN TIME 10.7 sec (9.6-11.0)
[2024-05-14 12:29] LABS: CHLORIDE 108 mEq/L (98-107); POTASSIUM 3.7 mEq/L (3.5-5.1); SODIUM 141 mEq/L (136-145)
[2024-05-14 12:30] LABS: CARBON DIOXIDE 27 mEq/L (21-32)
[2024-05-14 12:31] LABS: CALCIUM 9.1 mg/dL (8.7-10.4)
[2024-05-14 12:36] LABS: CREATININE 1.5 mg/dL (0.6-1.3); GLUCOSE 106 mg/dL (70-105); UREA NITROGEN BLOOD 18 mg/dL (9-23)
[2024-05-14 12:48] LABS: TROPONIN I HIGH SENSITIVITY 67 ng/L (3.0-53)
== END 2024-05-14 14:07 | disposition left against medical advice (07) ==
LOC: ER 11:39
DX: I21.3 ST elevation (STEMI) myocardial infarction of unspecified site (principal); I10 Essential (primary) hypertension; Z95.1 Presence of aortocoronary bypass graft; Z88.1 Allergy status to other antibiotic agents; Z79.899 Other long term (current) drug therapy; Z86.73 Personal history of transient ischemic attack (TIA), and cerebral infarction without residual deficits; Z98.890 Other specified postprocedural states
CPT/HCPCS: 36415; 71045; 80048; 83880; 84484; 85025; 93005; 99291; J2270

== ENCOUNTER → 2024-05-27 | Emergency (ER) | payer BC, MEDICAID ==
[~2024-05-27] VITALS: Ht 172.7 cm; Wt 74.8 kg
[2024-05-27 15:36] VITALS: BP 193/144; PULSE 82; RESP 16; TEMP 98.3; O2SAT 100
== END | disposition home or self-care (01) ==
LOC: ER 15:32
DX: Z76.0 Encounter for issue of repeat prescription (principal); I25.2 Old myocardial infarction; I10 Essential (primary) hypertension; Z79.899 Other long term (current) drug therapy; Z88.1 Allergy status to other antibiotic agents; Z86.73 Personal history of transient ischemic attack (TIA), and cerebral infarction without residual deficits; Z98.890 Other specified postprocedural states
CPT/HCPCS: 99281

== ENCOUNTER 2024-06-04 20:16 | Emergency (ER) | payer BC, MEDICAID ==
[~2024-06-04] VITALS: Ht 172.7 cm; Wt 82.4 kg
[2024-06-04 20:19] VITALS: O2SAT 100
[2024-06-04 20:24] VITALS: BP 155/82; PULSE 79; RESP 16; TEMP 98.2; O2SAT 98
[2024-06-05] MEDS ORDERED: NITR0.4T49 SL (00:33)
== END 2024-06-05 00:47 | disposition left against medical advice (07) ==
LOC: ER 20:16
DX: R07.89 Other chest pain (principal); R12 Heartburn; I10 Essential (primary) hypertension; I25.2 Old myocardial infarction; Z76.0 Encounter for issue of repeat prescription; Z79.899 Other long term (current) drug therapy; Z79.82 Long term (current) use of aspirin; Z88.1 Allergy status to other antibiotic agents
CPT/HCPCS: 99283

== ENCOUNTER 2024-08-29 14:52 | Emergency (ER) | payer BC, MEDICAID ==
[~2024-08-29] VITALS: Ht 167.6 cm; Wt 79.0 kg
[~2024-08-29 14:52] MED LIST changes: -NITR0.4T49 SL
[2024-08-29 14:58] VITALS: O2SAT 99
[2024-08-29] MEDS ORDERED: NITR0.4T49 SL (15:44)
[2024-08-29] MEDS: ASPIRIN 325MG TABLET PO ONE (16:06)
[2024-08-29] MEDS: NITROGLYCERIN 0.4MG TABLET SL SL ONE (16:06)
[2024-08-29 16:08] VITALS: BP 135/81; PULSE 110; RESP 16; TEMP 37.00296; O2SAT 99
== END 2024-08-29 16:09 | disposition left against medical advice (07) ==
LOC: ER 15:02
DX: R07.9 Chest pain, unspecified (principal); Z76.0 Encounter for issue of repeat prescription; E78.5 Hyperlipidemia, unspecified; I11.9 Hypertensive heart disease without heart failure; I25.10 Atherosclerotic heart disease of native coronary artery without angina pectoris; Z79.02 Long term (current) use of antithrombotics/antiplatelets; Z79.82 Long term (current) use of aspirin; Z79.899 Other long term (current) drug therapy; Z88.1 Allergy status to other antibiotic agents
CPT/HCPCS: 71045; 93005; 99283

== ENCOUNTER 2024-09-10 10:07 | Emergency (ER) | payer BC, MEDICAID ==
[~2024-09-10] VITALS: Ht 175.3 cm; Wt 85.0 kg
[~2024-09-10 10:07] MED LIST changes: +NITR0.4T49 SL
[2024-09-10 10:40] VITALS: BP 160/114; PULSE 68; RESP 18; TEMP 98.5; O2SAT 98
[2024-09-10] MEDS: NITROGLYCERIN 0.4MG TABLET SL SL ONE (14:29)
[2024-09-10] MEDS ORDERED: NITR0.4T49 SL (14:47)
[2024-09-10 15:14] LABS: BASOPHILS % 0.4 % (0.0-2.0); EOSINOPHILS % 2.9 % (0.0-5.0); HEMATOCRIT. 44.4 % (42.0-52.0); HEMOGLOBIN. 14.7 g/dL (14.0-18.0); LYMPHOCYTES % 38.1 % (20.0-50.0); MEAN CORPUSCULAR HEMOGLOBIN 30.8 pg (28.0-32.0); MEAN CORPUSCULAR VOLUME 93.1 fL (80.0-94.0); MEAN PLATELET VOLUME 8.1 fl (7.4-10.4); MONOCYTES % 6.5 % (2.0-8.0); NEUTROPHILS % 52.1 % (40.0-76.0); PLATELET 237 x1000/uL (130-400); RED BLOOD CELL COUNT 4.77 mill/uL (4.7-6.1); RED CELL DISTRIBUTION WIDTH 14.9 % (11.6-14.6); WHITE BLOOD COUNT 5.3 x1000/uL (4.5-11.0)
[2024-09-10 15:25] LABS: INR 0.9; PROTHROMBIN TIME 10.6 sec (9.6-11.0)
[2024-09-10] MEDS ORDERED: ASPIRIN 325MG EC TABLET PO ONE (15:30)
[2024-09-10 15:31] LABS: CARBON DIOXIDE 29 mEq/L (21-32); CHLORIDE 106 mEq/L (98-107); POTASSIUM 3.8 mEq/L (3.5-5.1); SODIUM 142 mEq/L (136-145)
[2024-09-10 15:32] LABS: CALCIUM 9.8 mg/dL (8.7-10.4)
[2024-09-10 15:36] LABS: TROPONIN I HIGH SENSITIVITY 37 ng/L (3.0-53)
[2024-09-10 15:37] LABS: GLUCOSE 95 mg/dL (70-105); UREA NITROGEN BLOOD 17 mg/dL (9-23)
[2024-09-10 15:38] LABS: ALANINE AMINOTRANSFERASE 18 IU/L (10-49); ALBUMIN 4.5 g/dL (3.2-4.8); ASPARTATE AMINOTRANSFERASE 21 IU/L (<34)
[2024-09-10 15:39] LABS: BILIRUBIN DIRECT 0.2 mg/dL (<=3.0); BILIRUBIN TOTAL 0.7 mg/dL (0.1-1.0); PROTEIN TOTAL 7.6 g/dL (6.0-8.3)
[2024-09-10 15:53] LABS: CREATININE 1.3 mg/dL (0.6-1.3)
== END 2024-09-10 17:27 | disposition left against medical advice (07) ==
LOC: ER 10:07 → EDBEDREQ 15:29 → CANBEDREQ 17:23 → ER 17:27
DX: I20.89 Other forms of angina pectoris (principal); I51.9 Heart disease, unspecified; I10 Essential (primary) hypertension; Z76.0 Encounter for issue of repeat prescription; Z88.1 Allergy status to other antibiotic agents; Z79.899 Other long term (current) drug therapy; Z79.82 Long term (current) use of aspirin
CPT/HCPCS: 36415; 71045; 80048; 80076; 84484; 85025; 93005; 99285

== ENCOUNTER 2024-09-21 18:47 | Emergency (ER) | payer BC, MEDICAID ==
[~2024-09-21] VITALS: Ht 172.7 cm; Wt 79.0 kg
[2024-09-21 18:57] VITALS: O2SAT 100
[2024-09-21 19:10] VITALS: BP 168/94; PULSE 76; RESP 16; TEMP 98.3; O2SAT 96
[2024-09-21] MEDS ORDERED: NITR0.4T49 SL (22:17)
== END 2024-09-21 23:00 | disposition home or self-care (01) ==
LOC: ER 18:47
DX: I10 Essential (primary) hypertension (principal); Z76.0 Encounter for issue of repeat prescription; I25.2 Old myocardial infarction; Z79.02 Long term (current) use of antithrombotics/antiplatelets; Z79.82 Long term (current) use of aspirin; Z79.899 Other long term (current) drug therapy; Z88.1 Allergy status to other antibiotic agents
CPT/HCPCS: 99281